=== PATIENT | male | born 1975 ===

== ENCOUNTER 2018-01-07 13:24 | Emergency (ER) | payer OTHER ==
[2018-01-07 13:39] VITALS: RESP 15; TEMP 98.2; O2SAT 98
--- NOTE | 2018-01-07 14:16 | ED PDOC ---
HPI: Back Time Seen by Provider: 01/07/18 13:33 Chief Complaint (Nursing): Back Pain Chief Complaint (Provider): Right side back pain History Per: Patient History/Exam Limitations: no limitations Onset/Duration Of Symptoms: Days (x2) Current Symptoms Are (Timing): Still Present Additional Complaint(s): 42 year old male presents to the ED complaining of right sided lower back pain for 2 days. Patient states he has pain with touch. Denies nausea, vomiting, diarrhea, and urinary symptoms. PMD: none Past Medical History Reviewed: Historical Data, Nursing Documentation, Vital Signs Vital Signs: Last Vital Signs Temp 98.2 F 01/07/18 13:36 Pulse 78 01/07/18 13:36 Resp 15 01/07/18 13:36 BP 158/84 H 01/07/18 13:36 Pulse Ox 98 01/07/18 13:36 - Medical History PMH: No Chronic Diseases - Surgical History Surgical History: No Surg Hx - Family History Family History: States: Unknown Family Hx - Social History Current smoker - smoking cessation education provided: No Alcohol: Social Drugs: Denies - Immunization History Hx Tetanus Toxoid Vaccination: No Hx Influenza Vaccination: No Hx Pneumococcal Vaccination: No - Home Medications Home Medications: Ambulatory Orders Medication Instructions Recorded DiphenhydrAMINE [Benadryl] 25 mg PO Q4 PRN #30 cap 12/15/17 Naproxen [Naprosyn] 1 tab PO BID PRN #20 tab 12/15/17 Cyclobenzaprine [Cyclobenzaprine 10 mg PO Q8H PRN #12 tab 01/07/18 HCl] Naproxen [Naprosyn] 500 mg PO BID PRN #20 tablet 01/07/18 - Allergies Allergies/Adverse Reactions: Allergies Allergy/AdvReac Type Severity Reaction Status Date / Time No Known Allergies Allergy Verified 01/07/18 13:33 Review of Systems ROS Statement: Except As Marked, All Systems Reviewed And Found Negative Gastrointestinal: Negative for: Nausea, Vomiting, Diarrhea Genitourinary Male: Negative for: Dysuria, Hematuria Musculoskeletal: Positive for: Back Pain (Right lower back) Physical Exam - Reviewed Nursing Documentation Reviewed: Yes Vital Signs Reviewed: Yes - Physical Exam Appears: Positive for: Non-toxic, No Acute Distress Head Exam: Positive for: ATRAUMATIC, NORMOCEPHALIC Skin: Positive for: Normal Color, Warm, Dry Eye Exam: Positive for: Normal appearance Neck: Positive for: Normal, Painless ROM Cardiovascular/Chest: Negative for: Bradycardia, Tachycardia Respiratory: Negative for: Respiratory Distress Gastrointestinal/Abdominal: Positive for: Normal Exam, Soft. Negative for: Tenderness Back: Positive for: Other (Right paraspinal tenderness) Extremity: Positive for: Normal ROM Neurologic/Psych: Positive for: Alert, Oriented. Negative for: Motor/Sensory Deficits - ECG O2 Sat by Pulse Oximetry: 98 (RA) Pulse Ox Interpretation: Normal Medical Decision Making Medical Decision Making: Initial Impression: Right lower back pain Initial Plan: ED urine dipstick Scribe Attestation: Documented by Juan Rodríguez acting as a scribe for Aarti GILBERT. Provider Scribe Attestation: All medical record entries made by the Scribe were at my direction and personally dictated by me. I have reviewed the chart and agree that the record accurately reflects my personal performance of the history, physical exam, medical decision making, and the department course for this patient. I have also personally directed, reviewed, and agree with the discharge instructions and disposition. Disposition - Clinical Impression Clinical Impression: Low back pain - Patient ED Disposition Is Patient to be Admitted: No Counseled Patient/Family Regarding: Diagnosis, Need For Followup, Rx Given - Disposition Referrals: [facility] [Outside] Disposition: Routine/Home Disposition Time: 15:21 Condition: GOOD Prescriptions: Cyclobenzaprine [Cyclobenzaprine HCl] 10 mg PO Q8H PRN #12 tab PRN Reason: Muscle Spasm Naproxen [Naprosyn] 500 mg PO BID PRN #20 tablet PRN Reason: Pain Instructions: Low Back Pain in Adults Forms: Linebacker (Eth[place]ian)
[2018-01-07 15:08] LABS: SQUAMOUS EPITHIAL < 1 /hpf (0-5); URINE BILIRUBIN NEGATIVE (NEGATIVE); URINE BLOOD NEGATIVE (NEGATIVE); URINE CLARITY CLEAR (Clear); URINE COLOR STRAW (YELLOW); URINE GLUCOSE (UA) >=500 mg/dL (Normal); URINE LEUKOCYTE ESTERASE NEG Leu/uL (Negative); URINE PROTEIN NEGATIVE (NEGATIVE); URINE UROBILINOGEN 0.2-1.0 mg/dL (0.2-1.0)
[2018-01-07 15:24] VITALS: BP 144/75; PULSE 73
== END 2018-01-07 15:24 | disposition home or self-care (01) ==
LOC: H.ER 13:24
DX: M54.5 Low back pain (principal)
CPT/HCPCS: 81003; 96372; 99283; J1885